=== PATIENT | male | born 1985 | race Caucasian/White ===

== ENCOUNTER 2017-09-13 12:30 | Emergency (ER) | payer BC ==
[~2017-09-13] VITALS: Ht 185.4 cm; Wt 70.3 kg
[2017-09-13 12:48] VITALS: BP 103/60
== END 2017-09-13 13:50 | disposition home or self-care (01) ==
LOC: ER 12:35
DX: K64.4 Residual hemorrhoidal skin tags (principal)
CPT/HCPCS: 99282; A4606; Z7610

== ENCOUNTER 2017-11-06 21:33 | Emergency (ER) | payer BC ==
[~2017-11-06] VITALS: Ht 185.4 cm; Wt 74.8 kg
[2017-11-06 22:11] VITALS: BP 109/65
[2017-11-06] MEDS ORDERED: LORAZEPAM 1 MG TABLET PO STA (22:21)
--- NOTE | 2017-11-06 22:31 | NUR ---
PT D/C W/ PRESCRIPTION IN STABLE CONDITION.
== END 2017-11-06 22:33 | disposition home or self-care (01) ==
LOC: ER 21:33
DX: F41.9 Anxiety disorder, unspecified (principal)
CPT/HCPCS: 99284; A4606; Z7610